=== PATIENT | female | born 1995 | race Caucasian/White ===

== ENCOUNTER 2018-07-10 01:11 | Emergency (ER) | payer MEDICAID ==
[~2018-07-10] VITALS: Ht 162.6 cm; Wt 95.2 kg
[2018-07-10] MEDS ORDERED: Prednisone20 MG PO (02:02)
== END 2018-07-10 02:35 | disposition home or self-care (01) ==
LOC: ER 01:11
DX: M54.42 Lumbago with sciatica, left side (principal); F17.210 Nicotine dependence, cigarettes, uncomplicated
CPT/HCPCS: 96372; 99283-25; A9270-GY; J1885; J7512